=== PATIENT | female | born 1930 | race Hispanic/Latino ===

== ENCOUNTER 2018-11-23 15:10 | Emergency (ER) | payer OTHER ==
[2018-11-23 17:03] LABS: Absolute Lymphocytes (CBC) 1.4 K/uL (0.7-4.9); Basophils % 0.8 % (0-1.3); Hematocrit 41.5 % (36.0-45.0); Lymphocytes % 22.4 % (15.3-44.8); MPV 7.4 fL (7.6-11.3); RBC Red Blood Cell Count 4.61 M/uL (3.86-4.86)
[2018-11-23 17:12] LABS: Albumin 4.3 g/dL (3.4-5.0); Bilirubin Direct 0.2 mg/dL (0-0.2); Bilirubin Total 0.7 mg/dL (0.2-1.0); Potassium 3.8 mmol/L (3.5-5.1)
[2018-11-23] MEDS ORDERED: FENTANYL CITR 100 MCG/2 ML ONE (17:28)
[2018-11-23] MEDS ORDERED: ONDANSETRON 4 MG/2 ML VIAL ONE (17:28)
[2018-11-23 17:37] LABS: Urine Bacteria 20-50 /HPF (<20); Urine RBC <5 /HPF (NONE SEEN)
[2018-11-23 17:38] LABS: Urine Amorphous Sediment 1+ /HPF (NONE SEEN); Urine Culture Reflex Order REFLEXED; Urine Mucus 2+ /HPF (NONE SEEN)
[2018-11-23 17:38] LABS: Urine Blood 1+ (NEG); Urine Glucose NEGATIVE (NEG); Urine Protein NEGATIVE (NEG); Urine Specific Gravity 1.015 (1.005-1.030)
[2018-11-23 18:06] LABS: Magnesium 2.6 mg/dL (1.8-2.4); NT PRO-BNP 177 pg/mL (<450); Troponin (Emerg Dept Use Only) < 0.02 ng/mL (0.0-0.045)
[2018-11-23] MEDS ORDERED: CEFTRIAXONE/SWI 1gm 2 GM/20 ML SYR ONE (18:15)
--- NOTE | 2018-11-23 18:23 | RAD REPORT ---
EXAM DESCRIPTION: Carlos Single View11/23/2018 5:32 pm CLINICAL HISTORY: Abdominal pain COMPARISON: none FINDINGS: The lungs appear clear of acute infiltrate. The heart is mildly enlarged IMPRESSION: No acute abnormalities displayed
--- NOTE | 2018-11-23 18:44 | RAD REPORT ---
EXAM DESCRIPTION: CT - Abdomen Pelvis W Contrast - 11/23/2018 6:14 pm CLINICAL HISTORY: Abdominal pain COMPARISON: none. TECHNIQUE: Computed axial tomography of the abdomen pelvis was obtained. 100 cc Isovue-300 was admin istered intravenously. Oral contrast was not requested which limits evaluation of bowel. All CT scans are performed using dose optimization technique as appropriate and may include automated exposure control or mA/KV adjustment according to patient size. FINDINGS: The hepatic cysts. The largest measures 27 millimeters. Cholecystectomy Spleen, pancreas, adrenal and kidneys appear unremarkable. Diverticulosis without evidence of diverticulitis. Small hiatal hernia Intimal flap versus small amount of thrombus within the thoracoabdominal aorta IMPRESSION: Intimal flap versus small amount of thrombus within the thoracoabdominal aorta . Hepatic cysts
[2018-11-23] MEDS ORDERED: Nicardipine/NS 25 MG/250 ML KIT IV ONE (19:20)
--- NOTE | 2018-11-23 19:25 | EDPHYS ---
Physician Documentation [facility] Name: Esperanza Odell Age: 88 yrs Sex: Female : 1930 Arrival Date: 11/23/2018 Time: 15:15 Bed 26 Private MD: ED Physician Edy Vargas HPI: 11/23 17:35 This 88 yrs old Female presents to ER via Ambulatory with complaints of wa Abdominal Pain, Back Pain. 17:36 The patient presents with abdominal pain in the epigastric area, in the right upper wa quadrant. Onset: The symptoms/episode began/occurred today. The symptoms radiate to right back. Associated signs and symptoms: none. The symptoms are described as achy. Modifying factors: The symptoms are alleviated by nothing, the symptoms are aggravated by nothing. Severity of pain: At its worst the pain was moderate in the emergency department the pain is unchanged. The patient has experienced a previous episode, many years ago. dx'd with pancreatitis. The patient has not recently seen a physician. Historical: - Allergies: 15:20 No Known Allergies; hb - PMHx: 15:20 None; hb - PSHx: 15:20 Appendectomy; hb - Immunization history:: Adult Immunizations up to date. - Social history:: Smoking status: Patient/guardian denies using tobacco. - Ebola Screening: : No symptoms or risks identified at this time. - Family history:: not pertinent. - Hospitalizations: : No recent hospitalization is reported. ROS: 17:37 Constitutional: Negative for fever, chills, and weight loss, Eyes: Negative for injury, wa pain, redness, and discharge, ENT: Negative for injury, pain, and discharge, Neck: Negative for injury, pain, and swelling, Cardiovascular: Negative for chest pain, palpitations, and edema, Respiratory: Negative for shortness of breath, cough, wheezing, and pleuritic chest pain, Back: Negative for injury and pain, : Negative for injury, bleeding, discharge, and swelling, MS/Extremity: Negative for injury and deformity, Skin: Negative for injury, rash, and discoloration, Neuro: Negative for headache, weakness, numbness, tingling, and seizure, Psych: Negative for depression, anxiety, suicide ideation, homicidal ideation, and hallucinations. 17:37 Abdomen/GI: Positive for abdominal pain, Negative for vomiting, diarrhea. Exam: 17:38 Constitutional: This is a well developed, well nourished patient who is awake, alert, wa and in no acute distress. Head/Face: Normocephalic, atraumatic. Eyes: Pupils equal round and reactive to light, extra-ocular motions intact. Lids and lashes normal. Conjunctiva and sclera are non-icteric and not injected. Cornea within normal limits. Periorbital areas with no swelling, redness, or edema. ENT: Nares patent. No nasal discharge, no septal abnormalities noted. Tympanic membranes are normal and external auditory canals are clear. Oropharynx with no redness, swelling, or masses, exudates, or evidence of obstruction, uvula midline. Mucous membranes moist. Neck: Trachea midline, no thyromegaly or masses palpated, and no cervical lymphadenopathy. Supple, full range of motion without nuchal rigidity, or vertebral point tenderness. No Meningismus. Chest/axilla: Normal chest wall appearance and motion. Nontender with no deformity. No lesions are appreciated. Cardiovascular: Regular rate and rhythm with a normal S1 and S2. No gallops, murmurs, or rubs. Normal PMI, no JVD. No pulse deficits. Respiratory: Lungs have equal breath sounds bilaterally, clear to auscultation and percussion. No rales, rhonchi or wheezes noted. No increased work of breathing, no retractions or nasal flaring. Back: No spinal tenderness. No costovertebral tenderness. Full range of motion. Skin: Warm, dry with normal turgor. Normal color with no rashes, no lesions, and no evidence of cellulitis. MS/ Extremity: Pulses equal, no cyanosis. Neurovascular intact. Full, normal range of motion. Neuro: Awake and alert, GCS 15, oriented to person, place, time, and situation. Cranial nerves II-XII grossly intact. Motor strength 5/5 in all extremities. Sensory grossly intact. Cerebellar exam normal. Normal gait. Psych: Awake, alert, with orientation to person, place and time. Behavior, mood, and affect are within normal limits. 17:38 Abdomen/GI: Inspection: abdomen appears normal, Bowel sounds: normal, in all quadrants, Palpation: mild abdominal tenderness, in the epigastric area and right upper quadrant, voluntary guarding, is not appreciated. Vital Signs: 15:20 BP 139 / 80; Pulse 76; Resp 16; Temp 98; Pulse Ox 98% on R/A; Weight 77.11 kg; Height 5 hb ft. 1 in. (154.94 cm); Pain 8/10; 17:37 BP 117 / 73; Pulse 77; Resp 18; Pulse Ox 100% on R/A; mg2 18:51 BP 134 / 70; Pulse 78; Resp 18; Pulse Ox 100% on R/A; mg2 19:55 BP 90 / 65; Pulse 78; Resp 18; Pulse Ox 100% on R/A; mg2 20:06 BP 117 / 74; Pulse 87; Resp 18; Pulse Ox 100% on R/A; Pain 0/10; mg2 20:33 BP 129 / 76; Pulse 85; Resp 17; Pulse Ox 100% on R/A; mg2 15:20 Body Mass Index 32.12 (77.11 kg, 154.94 cm) hb MDM: 16:37 Patient medically screened. selina 17:39 Differential diagnosis: bowel obstruction, Hepatitis, Mesenteric ischemia or wa infarction, myocardia ischemia or infarction, non-specific abd pain, pancreatitis, Peptic Ulcer Disease, Perf. Duodenal Ulcer, Ureterolithiasis, urinary tract infection. Data reviewed: vital signs, nurses notes. 18:36 Test interpretation: by ED physician or midlevel provider: labs noted for UTI. EKG: selina soriano by ok. HR 74 nml sinus. nml EKG. Response to treatment: the patient's symptoms have mildly improved after treatment. 18:58 Test interpretation: by ED physician or midlevel provider: intimal flap vs small wa thrombus in thoracoabdominal aorta. ED course: noted thrombus vs flap in aorta. will transfer for further care . 19:21 Test interpretation: by ED physician or midlevel provider: . Physician consultation: selina Pruitt at [facility] CT surg. ED course: will start cardene drip for control of pressure. family advised of dx. 11/23 16:28 Order name: Basic Metabolic Panel; Complete Time: 17:19 mg2 11/23 16:28 Order name: CBC with Diff; Complete Time: 17:19 mg2 11/23 16:28 Order name: Creatinine for Radiology; Complete Time: 17:19 mg2 11/23 16:28 Order name: Hepatic Function; Complete Time: 17:19 mg2 11/23 16:28 Order name: Lipase; Complete Time: 17:20 [facility] [place] 11/23 16:53 Order name: Urine Dipstick--Ancillary (enter results); Complete Time: 18:10 11/23 17:17 Order name: Urine Microscopic Only; Complete Time: 18:10 ak 11/23 17:19 Order name: Magnesium; Complete Time: 18:10 ak 11/23 17:19 Order name: NT PRO-BNP; Complete Time: 18:10 ak 11/23 17:19 Order name: PT-INR; Complete Time: 18:10 ak 11/23 17:19 Order name: Troponin (emerg Dept Use Only); Complete Time: 18:10 ak 11/23 17:19 Order name: XRAY Chest (1 view); Complete Time: 18:35 ak 11/23 17:24 Order name: CT Abd/Pelvis - IV Contrast Only; Complete Time: 18:47 ak 11/23 17:40 Order name: Urine Culture EDME 11/23 16:28 Order name: IV Saline Lock; Complete Time: 16:41 [facility] [place] 11/23 16:28 Order name: Labs collected and sent; Complete Time: 16:41 [facility] [place] 11/23 16:41 Order name: Urine Dipstick-Ancillary (obtain specimen); Complete Time: 16:42 [facility] [place] 11/23 17:19 Order name: EKG; Complete Time: 17:21 ak 11/23 17:19 Order name: Cardiac monitoring; Complete Time: 17:27 ak 11/23 17:19 Order name: EKG - Nurse/Tech; Complete Time: 17:47 ak 11/23 17:19 Order name: O2 Per Protocol; Complete Time: 17:27 ak 11/23 17:19 Order name: O2 Sat Monitoring; Complete Time: 17:27 ak Administered Medications: 17:29 Drug: Zofran 4 mg Route: IVP; Site: right antecubital; rv 18:12 Follow up: Response: No adverse reaction; Marked relief of symptoms mg2 17:29 Drug: fentaNYL (PF) 50 mcg Route: IVP; Site: right antecubital; rv 18:12 Follow up: Response: No adverse reaction; Marked relief of symptoms mg2 18:38 Drug: Rocephin - (cefTRIAXone) 2 grams Route: IVPB; Infused Over: 30 mins; Site: right mg2 antecubital; 20:32 Follow up: IV Status: Completed infusion mg2 19:40 Drug: niCARdipine (25mg/250ml) 5 mg/hr Route: IV; Rate: calculated rate; Site: right mg2 antecubital; 20:33 Follow up: Response: No adverse reaction; IV Status: Infusion continued upon transfer; mg2 blood pressure to maintain between 110-120 mmHg SBP Disposition: 11/23/18 19:24 Transfer ordered to [facility]. Diagnosis are Aortic dissection, abdominal pain, UTI. - Reason for transfer: Higher level of care. - Accepting physician is Dr. Pruitt. - Condition is Stable. - Problem is new. - Symptoms have improved. Critical care time excluding procedures: 19:24 Critical care time: Bedside Care: 15 minutes, Consultation: 5 minutes, Family selina Intervention: 10 minutes. Total time: 30 minutes Signatures: Dispatcher [employer] EDMS Nuvia Coley RN RN Edy Vargas MD MD wa Gardose, Michele, RN RN [facility] [place] Cristino Ortiz RN RN rv Corrections: (The following items were deleted from the chart) 19:25 19:23 Critical care time: Bedside Care: 10 minutes, Consultation: 5 minutes, Family selina Intervention: 10 minutes. Total time: 25 minutes ak 20:35 19:24 11/23/2018 19:24 Transfer ordered to [facility]. Diagnosis is mg2 Aortic dissection; abdominal pain; UTI. Reason for transfer: Higher level of care. Accepting physician is Dr. Pruitt. Condition is Stable. Problem is new. Symptoms have improved. selina
--- NOTE | 2018-11-23 19:25 | ER ---
Nurse's Notes [facility] Name: Esperanza Odell Age: 88 yrs Sex: Female : 1930 Arrival Date: 11/23/2018 Time: 15:15 Bed 26 Private MD: Diagnosis: Aortic dissection;abdominal pain;UTI Presentation: 11/23 15:18 Presenting complaint: RUQ pain that radiates to mid back, chills, and nausea since last hb night. Denies V/D. Transition of care: patient was not received from another setting of care. Onset of symptoms was November 22, 2018. Risk Assessment: Do you want to hurt yourself or someone else? Patient reports no desire to harm self or others. Initial Sepsis Screen: Does the patient meet any 2 criteria? No. Patient's initial sepsis screen is negative. Does the patient have a suspected source of infection? No. Patient's initial sepsis screen is negative. Care prior to arrival: None. 15:18 Method Of Arrival: Ambulatory hb 15:18 Acuity: INNA 3 hb Historical: - Allergies: 15:20 No Known Allergies; hb - PMHx: 15:20 None; hb - PSHx: 15:20 Appendectomy; hb - Immunization history:: Adult Immunizations up to date. - Social history:: Smoking status: Patient/guardian denies using tobacco. - Ebola Screening: : No symptoms or risks identified at this time. - Family history:: not pertinent. - Hospitalizations: : No recent hospitalization is reported. Screenin:29 Abuse screen: Denies threats or abuse. Denies injuries from another. Nutritional mg2 screening: No deficits noted. Tuberculosis screening: No symptoms or risk factors identified. Fall Risk IV access (20 points). Assessment: 16:29 General: Appears in no apparent distress. comfortable, Behavior is calm, cooperative. mg2 Pain: Complains of pain in RUQ Pain radiates to back Pain currently is 4 out of 10 on a pain scale. Quality of pain is described as aching, Pain began gradually, Is intermittent. Neuro: Level of Consciousness is awake, alert, obeys commands, Oriented to person, place, time, situation. Cardiovascular: Capillary refill < 3 seconds Patient's skin is warm and dry. Respiratory: Airway is patent Respiratory effort is even, unlabored, Respiratory pattern is regular, symmetrical. GI: Bowel sounds present X 4 quads. Abd is soft and non tender X 4 quads. GI: Reports upper abdominal pain, nausea. EENT: No signs and/or symptoms were reported regarding the EENT system. Derm: Skin is intact, is healthy with good turgor, Skin is pink, warm \T\ dry. normal. Musculoskeletal: No signs and/or symptoms reported regarding the musculoskeletal system. 18:51 Reassessment: Patient states feeling better. Patient states symptoms have improved. mg2 20:07 Reassessment: report given to KEHINDE Gold [facility]. form signed by the daughter. mg2 Vital Signs: 15:20 BP 139 / 80; Pulse 76; Resp 16; Temp 98; Pulse Ox 98% on R/A; Weight 77.11 kg; Height 5 hb ft. 1 in. (154.94 cm); Pain 8/10; 17:37 BP 117 / 73; Pulse 77; Resp 18; Pulse Ox 100% on R/A; mg2 18:51 BP 134 / 70; Pulse 78; Resp 18; Pulse Ox 100% on R/A; mg2 19:55 BP 90 / 65; Pulse 78; Resp 18; Pulse Ox 100% on R/A; mg2 20:06 BP 117 / 74; Pulse 87; Resp 18; Pulse Ox 100% on R/A; Pain 0/10; mg2 20:33 BP 129 / 76; Pulse 85; Resp 17; Pulse Ox 100% on R/A; mg2 15:20 Body Mass Index 32.12 (77.11 kg, 154.94 cm) hb ED Course: 15:15 Patient arrived in ED. mr 15:19 Triage completed. hb 15:20 Arm band placed on. hb 16:25 Cristino Ortiz, KEHINDE is Primary Nurse. rv 16:31 Patient has correct armband on for positive identification. mg2 16:37 Edy Vargas MD is Attending Physician. wa 16:42 No provider procedures requiring assistance completed. Inserted saline lock: 20 gauge mg2 in right antecubital area, using aseptic technique. Blood collected. 17:34 XRAY Chest (1 view) In Process Unspecified. EDMS 18:16 CT Abd/Pelvis - IV Contrast Only In Process Unspecified. EDMS 20:34 Patient transferred, IV remains in place. mg2 Administered Medications: 17:29 Drug: Zofran 4 mg Route: IVP; Site: right antecubital; rv 18:12 Follow up: Response: No adverse reaction; Marked relief of symptoms mg2 17:29 Drug: fentaNYL (PF) 50 mcg Route: IVP; Site: right antecubital; rv 18:12 Follow up: Response: No adverse reaction; Marked relief of symptoms mg2 18:38 Drug: Rocephin - (cefTRIAXone) 2 grams Route: IVPB; Infused Over: 30 mins; Site: right mg2 antecubital; 20:32 Follow up: IV Status: Completed infusion mg2 19:40 Drug: niCARdipine (25mg/250ml) 5 mg/hr Route: IV; Rate: calculated rate; Site: right mg2 antecubital; 20:33 Follow up: Response: No adverse reaction; IV Status: Infusion continued upon transfer; mg2 blood pressure to maintain between 110-120 mmHg SBP Intake: Outcome: 19:24 ER care complete, transfer ordered by MD. marks 20:34 Transferred by ground EMS to [facility], Transfer form completed. mg2 20:34 Condition: stable 20:34 Instructed on the need for transfer, Demonstrated understanding of instructions. 20:35 Patient left the ED. mg2 Signatures: Dispatcher [employer] EDID Sidra Calixto Heather, RN RN Edy Vargas MD MD wa Gardose, Michele, RN RN mg2 Cristino Ortiz RN RN rv
--- NOTE | 2018-11-24 07:36 | EKG ---
Test Date: 2018-11-23 Test Time: 17:40:11 Hadoop Architect: CLAY MEASUREMENT RESULTS: Intervals: Rate: 74 NH: 182 QRSD: 82 QT: 406 QTc: 450 [place]: P: 57 NH: 182 QRS: 64 T: 80 INTERPRETIVE STATEMENTS: Normal sinus rhythm Normal ECG Compared to ECG 10/26/2004 05:30:00 Myocardial infarct finding no longer present Electronically Signed On 11-24-18 07:35:14 CDT by Ashish Escamilla
== END 2018-11-23 20:35 | disposition short-term general hospital (02) ==
LOC: ER 15:10
DX: I71.00 Dissection of unspecified site of aorta (principal); N39.0 Urinary tract infection, site not specified
CPT/HCPCS: 96365; 93005; 87088; 85025; 87086; 80048; 36415; 83735; 85610; 80076; 84484; 83690; 83880; 74177; 71045; 96375; 99285; Q9967; J3010; J0696; J2405; 81003; 81015

== ENCOUNTER 2020-11-17 17:00 | Inpatient (IN) | payer OTHER ==
--- OUTSIDE RECORDS SUMMARY | 2020-11-17 17:04 | XMS REPORT | Continuity of Care Document ---
:1930 Author Organization [facility] t Address [address] [place] [address] [address]. 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 - back pain back pain 00:00: [address] Allergies, Adverse Reactions, Alerts This patient has no known allergies or adverse reactions. Social History Social Habit Start Date Stop Date Quantity Comments Source Sex Assigned At [facility] Cigarettes smoked 2018-11-24 2018-11-[address] [facility] - current [facility]pack per 00:00[facility]00 [facility]00 [facility] - Reported Cigarette pack-years 2018-11-24 2018-11-[address] [facility] - 00:[facility]:00 00:00:00 [facility] Tobacco use and 2018-11-24 2018-11-[address] [facility] - exposure 00:00:00 00:00:00 [facility] Smoking Status Start Date Stop Date Source Former smoker 2018-11-24 00:00:00 2018-11-24 00:00:[address] [facility] Medications Ordered Filled Start Stop Current Ordering Indication Dosage Frequency Signature Comments Components Source Medication Medication Date Date Medication? Clinician (SIG) Name Name gabapentin Yes 100mg Q.5D Take [address] (NEURONTIN) 11-26 [facility] - 100 MG 00:00: (100 mg Medical capsule 00 total) by Center mouth 2 (two) times daily. Atorvastati Atorvastati Yes Uvaldo [address] [facility] n Calcium n Calcium [facility] Amlodipine Amlodipine Yes Uvaldo [address] Besylate Besylate [facility] Metoprolol Metoprolol Yes Uvaldo take [address] [facility] [address] Succinate Succinate Dodge tablet by [facility] - ER ER mouth Memoria every day l [facility]ics Aspir-Low Aspir-Low Yes Uvaldo [address] [facility] Immunizations Ordered Filled Immunization Date Status Comments Sourc e Immunization Name Name FluCOURTNEY FluAD 2019-02-[address] [facility] Procedures This patient has no known procedures. Plan of Care Planned Activity Planned Date Details Comments Source Future Scheduled 2019-12-21 INFLUENZA VACCINE (#1) [facility] 00:[facility]00 [code = INFLUENZA Medical Ce nter VACCINE (#1)] Future Scheduled 1999-07-[address] [facility] - Test 00:00:00 WELLNESS (YEAR 2 or Medical Center FIRST YEAR if no IPPE) [code = MEDICARE ANNUAL WELLNESS (YEAR 2 or FIRST YEAR if no IPPE)] Future Scheduled 1996 PNEUMOCOCCAL 65+ YRS [facility] - Test 00:00:00 (1 of 1 - [facility] [id number] PCV13) [code = PNEUMOCOCCAL 65+ YRS (1 of 1 - [id number] PCV13)] Encounters Start End Encounter Admission Attending Care Care Encounter Source Date/Time Date/Time Type Type Clinicians Facility Department ID 2020-10-13 2020-10-13 Outpatient [facility]ML[facility] [id number] [facility] 2020-10-09 2020-10-09 Outpatient [facility]MLC [facility] [id number] [facility] 2020-09-04 2020-09-04 Outpatient [facility]LMLC [facility] [id number] [facility] 2020-09-04 2020-09-04 Outpatient [facility]MLC [facility] [id number] [facility] 2020-03-30 2020-03-30 Outpatient STLMLC [facility] [id number] [facility] 2020-02-29 2020-02-29 Outpatient [facility]LMLC [facility] [id number] [facility] 2020-01-11 2020-01-11 Outpatient [facility]LMLC [facility] [id number] [facility] 2019-09-16 2019-09-16 [facility] [id number] 14:30:00 14:30:00 t [facility] Outpati ent Clinics 2019-05-20 2019-05-20 [facility] [id number] 13:00:00 13:00:00 t [facility] Medicine Outpati ent Clinics 2019-02-17 2019-02-17 [facility] [id number] 10:30:00 10:30:00 [facility] 2019-02-08 2019-02-08 [facility] [id number] 10:12:00 10:12:00 [facility] 2019-01-20 2019-01-20 Outpatient [facility] [id number] 13:30:00 13:30:00 [facility] Results Test Description Test Time Test Comments Results Result Comments Source POCT-GLUCOSE METER 2018-11-26 11:55:00 Test Item Value Reference Range Interpretation Comme nts POC-GLUCOSE METER (BEAKER) (test 151 mg/dL 70-[address] [facility] [address] [facility] code = 1538) [facility] 7703 0 POCT-GLUCOSE [id number] 08:20:00 Test Item Value Reference Range Interpretation Comments POC-GLUCOSE METER 91 mg/dL 70-[address] [facility] 67[address] (BEAKER) (test code = MARIN Huff [facility] [id number]) [id number] 06:54:00 Test Item Value Reference Range Interpretation Comments MAGNESIUM (BEAKER) 2.1 mg/dL 1.6-2.6 Specimen slightly (test code = 627) hemolyzed [id number] 06:54:00 Test Item Value Reference Range Interpretation Comments PHOSPHORUS (BEAKER) 2.3 mg/dL 2.3-4.7 Specimen slightly (test code = 604) hemolyzed BASIC METABOLIC [id number] 06:54:00 Test Item Value Reference Range Interpretation Comments SODIUM (BEAKER) 135 meq/L 136-145 L (test code = 381) POTASSIUM (BEAKER) 3.7 meq/L 3.5-5.1 Specimen slightly (test code = 379) hemolyzed CHLORIDE (BEAKER) 103 meq/L 98-107 (test code = 382) CO2 (BEAKER) (test 25 meq/L 22-29 code = 355) BLOOD UREA NITROGEN 14 mg/dL 7-21 (BEAKER) (test code = 354) CREATININE (BEAKER) 0.76 mg/dL 0.57-1.25 Specimen slightly (test code = 358) hemolyzed GLUCOSE RANDOM 96 mg/dL 70-105 (BEAKER) (test code = 652) CALCIUM (BEAKER) 9.3 mg/dL 8.4-10.2 (test code = 697) EGFR (BEAKER) (test 72 mL/min/1.73 ESTIMA BELINDA GFR IS code = 1092) sq m NOT ACCURATE CREATININE CLEARANCE IN PREDICTING GLOMERULAR FILTRATION RATE . ESTIMATED GFR I S NOT APPLICABLE FOR DIALYSIS PATIEN TS. CBC (HEMOGRAM ONLY)2018-11-26 06:19:00 Test Item Value Reference Range Interpretation Comments WHITE BLOOD CELL COUNT (BEAKER) 6.8 K/ L 3.5-10.5 (test code = 775) RED BLOOD CELL COUNT (BEAKER) 4.07 M/ L 3.93-5.22 (test code = 761) HEMOGLOBIN (BEAKER) (test code = 12.3 GM/DL 11.2-15.7 410) HEMATOCRIT (BEAKER) (test code = 36.7 % 34.1-44.9 411) MEAN CORPUSCULAR VOLUME (BEAKER) 90.2 fL 79.4-94.8 (test code = 753) MEAN CORPUSCULAR HEMOGLOBIN 30.2 pg 25.6-32.2 (BEAKER) (test code = 751) MEAN CORPUSCULAR HEMOGLOBIN CONC 33.5 GM/DL 32.2-35.5 (BEAKER) (test code = 752) RED CELL DISTRIBUTION WIDTH 12.6 % 11.7-14.4 (BEAKER) (test code = 412) PLATELET COUNT (BEAKER) (test 201 K/CU MM 150-450 code = 756) MEAN PLATELET VOLUME (BEAKER) 8.9 fL 9.4-12.3 L (test code = 754) NUCLEATED RED BLOOD CELLS 0 /100 WBC 0-0 (BEAKER) (test code = 413) [id number] 04:05:00 Test Item Value Reference Range Interpretation Comments PHOSPHORUS (BEAKER) (test code = 2.2 mg/dL 2.3-4.7 L 604) [id number] 04:05:00 Test Item Value Reference Range Interpretation Comments MAGNESIUM (BEAKER) (test code = 2.1 mg/dL 1.6-2.6 627) BASIC METABOLIC [id number] 04:05:00 Test Item Value Reference Range Interpretation Comments SODIUM (BEAKER) 135 meq/L 136-145 L (test code = 381) POTASSIUM (BEAKER) 3.6 meq/L 3.5-5.1 (test code = 379) CHLORIDE (BEAKER) 106 meq/L 98-107 (test code = 382) CO2 (BEAKER) (test 24 meq/L 22-29 code = 355) BLOOD UREA NITROGEN 12 mg/dL 7-21 (BEAKER) (test code = 354) CREATININE (BEAKER) 0.72 mg/dL 0.57-1.25 (test code = 358) GLUCOSE RANDOM 90 mg/dL 70-105 (BEAKER) (test code = 652) CALCIUM (BEAKER) 9.1 mg/dL 8.4-10.2 (test code = 697) EGFR (BEAKER) (test 77 mL/min/1.73 ESTIMA BELINDA GFR IS code = 1092) sq m NOT ACCURATE CREATININE CLEARANCE IN PREDICTING GLOMERULAR FILTRATION RATE . ESTIMATED GFR I S NOT APPLICABLE FOR DIALYSIS PATINELIDA TS. LIPID [id number] 04:05:00 Test Item Value Reference Range Interpretation Comments TRIGLYCERIDES (BEAKER) (test code = 91 mg/dL 540) CHOLESTEROL (BEAKER) (test code = 192 mg/dL 631) HDL CHOLESTEROL (BEAKER) (test code 38 mg/dL = 976) LDL CHOLESTEROL CALCULATED (BEAKER) 136 mg/dL (test code = 633) Triglyceride Reference Range: Low Risk <150 Borderline 150-199 High Risk 200-499 Very High Risk >=500Cholesterol Reference Range: Low Risk <200 Borderline 200-239 High Risk >240HDL Cholesterol Reference Range: Low Risk >=60 High Risk <40LDL Cholesterol Reference Range: Optimal <100 Near Optimal 100-129 Borderline 130-159 High 160-189 Very High >=190CBC (HEMOGRAM ONLY)2018-11-25 03:31:00 Test Item Value Reference Range Interpretation Comments WHITE BLOOD CELL COUNT (BEAKER) 5.1 K/ L 3.5-10.5 (test code = 775) RED BLOOD CELL COUNT (BEAKER) 4.08 M/ L 3.93-5.22 (test code = 761) HEMOGLOBIN (BEAKER) (test code = 12.1 GM/DL 11.2-15.7 410) HEMATOCRIT (BEAKER) (test code = 37.7 % 34.1-44.9 411) MEAN CORPUSCULAR VOLUME (BEAKER) 92.4 fL 79.4-94.8 (test code = 753) MEAN CORPUSCULAR HEMOGLOBIN 29.7 pg 25.6-32.2 (BEAKER) (test code = 751) MEAN CORPUSCULAR HEMOGLOBIN CONC 32.1 GM/DL 32.2-35.5 L (BEAKER) (test code = 752) RED CELL DISTRIBUTION WIDTH 12.6 % 11.7-14.4 (BEAKER) (test code = 412) PLATELET COUNT (BEAKER) (test 204 K/CU MM 150-450 code = 756) MEAN PLATELET VOLUME (BEAKER) 9.0 fL 9.4-12.3 L (test code = 754) NUCLEATED RED BLOOD CELLS 0 /100 WBC 0-0 (BEAKER) (test code = 413) CTA, CHEST, ABDOMEN - PELVIS, FOR [id number] 18:29:00Reason for exam:- >aortic dissectionAddendum BeginsREPORT STATUS:A Addendum: I agree with the previously described non vascular findings. In the right apex there is a 9 mm x 9 mm nodularity that may be apical pleural parenchymal scarring versus a true pulmonary nodule. Consider CT at three months, PET/CT, or tissue sampling. Signed: Dennis English MDReport Verified Date/Time: 11/24/2018 18:29:44 Reading Location: [place] [address] Angio Body Reading RoomAddendum EndsFINAL REPORT CT angiographyof the thoracoabdominal aorta and pelvic arteries, 24 November 2018 INDICATION: This is a 88 year oldfemale with a diagnosis of aortic dissection presents for assessment. This study is performed in an attempt to avoid an invasive procedure. TECHNIQUE: Spiral acquisition before and during intravenous contrast administration using a Georgie multidetector CT scanner. Images were obtained before and during the dynamic passage of intravenous contrast material. Multi- planar 3-D volume-rendering reconstruction was performed using an independent workstation interactively by the interpreting physician as well as the 3-D specialist for optimal visualisation of the thoracoabdominal aorta, the pelvic arteries as well as its proximal branches. Please refer to the contrast sheet scanned in the EPIC system forthe amount and route of contrast given. This exam was performed according to our departmental dose-optimisation programme, which includes automated exposure control, adjustment of the mA and/or kV according to patient size and/or use of iterative reconstruction technique. Dose modulation, iterative reconstruction, and/or weight based adjustment of the mA/kV was utilized to reduce the radiation dose to as low as reasonably achievable. FINDINGS: VASCULAR: The central pulmonary artery is normal in calibre. The cardiac chambers demonstrate normal atrioventricular and ventriculoarterial concordance, and systemic and pulmonary venous return. The left ventricle is normal in size. Mild left atrial prominence is identified. Coronary artery origins are normal. Scattered calcification is seen in the left main coronary artery, proximal LAD. The aortic root is unremarkable. The mid ascending thoracic aorta is also normal in calibre, however, noncalcific atheroma is identified, in the right lateral aspect, and the thickness of the atheroma is up to 3 mm. The transverse arch and descending thoracic aorta also had predominantly noncalcific atherosclerosis with scattered calcification identified. In addition, in the undersurface of the proximal descending thoracic aorta, atherosclerotic ulceration is identified, at image 60. See snapshot for details. In addition, protruding atheroma is seen, measures up to 9 to 10 mm in thickness. Again see snapshot for details. Protruding atheroma is also identified near the diaphragmatic hiatus, in the left medial aspect, at image 159, and the thickness of the atheroma is approximately 8 mm in thickness. The abdominal aorta is unremarkable, with mild calcific and noncalcific atherosclerosis identified. No aneurysmal dilation is seen. There is no evidence of acute aortic pathology, specifically, there is no dissection, intramural hematoma, or contained rupture. The arch vessel branching pattern is normal and the visualized arch vessels are widely patent proximally. Finally, localised atherosclerotic ulceration is identified in the takeoff of the left subclavian artery, anteriorly, at image 42, with no stenosis is identified. Quantitative dimensions of the aortaare as follows: 3.0 cm at the sinuses of Valsalva (the sino-tubular junction is preserved); 3.0 cm at the proximal ascending thoracic aorta; 3.0 cm at the mid ascending aorta; 3.0 cm at the distal ascending aorta; 2.7 cm at the mid transverse arch; 3.6 x 3.1 cm at the proximal descending aorta; 2.5 x 2.4 cm at the mid descending aorta; 2.4 x 2.3 cm at the diaphragmatic hiatus. In the abdomen, the aorta measures 2.3 cm at the mesenteric segment; 1.9 cm at the renal segment,; and 1.7 cm at the aortic bifurcation. The common iliac, external iliac, common femoral, and the visualized superficial femoral arteries, bilaterally, are widely patent with no obstructive lesion identified. Only minimal nonobstructive calcification is present, for example at the common iliac level. Agricultural Engineer dimension of the left and the right external iliac artery is approximately 5 to 6 mm, bilaterally. There are 2 left and single right renal arteries that are widely patent. The accessory left renal artery is tiny in calibre. Minimal nonobstructive calcification is seen at the takeoff of the main left renal art nicolás. The coeliac axis, SMA, EDWAR are widely patent. NON-VASCULAR:- The visualised thyroid gland appears unremarkable. The chest wall and mediastinum appear normal. No significant adenopathy is identified in the mediastinum. In the lung windows, no endobronchial lesion is seen, and no pleural effusion is identified. Some segmental atelectatic changes are seen. At image 12 of the right upper lobe, apical scarring is identified. See snapshot for details. No pulmonary nodule is identified. In the abdomen, the liver and spleen appears unremarkable. The liver edge is smooth. A left liver cyst is identified, at image 171, measure 2.6 cm in diameter. A smaller cyst measuring 8 mm identified more laterally. No abnormal enhancing structure is identified. The adrenal glands are not enlarged. Patient is post cholecystectomy. The pancreas appears unremarkable. No acute renal pathology is seen and no hydronephrosis or perirenal fluid collection is noted. Subcentimeter hypodensities are seen in the kidneys, most of them are too small to characterise, likely represent tiny renal cysts. Contrast is seen in both renal pelvis in the precontrast series is indicating prior contrast exposure. Bowel is not well assessed by CT angiography as enteric contrast is not given. No obvious bowel dilation is identified.A small hiatus hernia is noted diverticular disease is seen in the distal colon with no inflammatorychanges present. The bladder is full of contrast. The uterus is present. No obvious abnormal adnexalmass is seen and CT is not optimised in assessment of pelvic gynecological structure is. No significant retroperitoneal adenopathy is identified. No free air free fluid seen abdomen and pelvis. In the bony windows, no acute bony pathology is seen. Some degenerative changes is noted. CONCLUSIONS: 1. There is no aortic dissection. 2. No obvious vascular aetiology that would explain patient's abdominal pain despite the presence of protruding atheroma. No abrupt cutoff sign is identified in the mesenteric arteries and the major mesenteric arteries are seen to be widely patent proximally. The visualised bowel structure is grossly unremarkable and no pneumatosis is identified. 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 Widely patent mesenteric and renal arteries. 3. The thoracic aorta is normal in course and calibre. No acute aortic pathology is identified. In the mid ascending thoracic aorta, the diaphragmatic hiatus, protruding noncalcific atheroma is identified. In addition, in the undersurface of the proximal descending thoracic aorta, at image 58, protruding atheroma is identified, with associated atherosclerotic ulceration, representing a spectrum of underlying atherosclerosis. See snapshot for details. Quantitative dimension of the thoracoabdominal aorta are as described above. 4. Normal coronary artery origins. Scattered Calcifications identified in the left coronary territory. 5. No acute pulmonary pathology is identified. 6. Other findings as described above. 7. An addendum will be dictated regarding the non-vascular findings by the Pest Control Specialist Radiologist. Signed: Luke Bella Verified Date/Time: 11/24/2018 07:58:35 Reading Location: [place] [address] Cardiology MRI B-TYPE NATRIURETIC FACTOR (BNP)2018-11-24 12:59:00 Test Item Value Reference Range Interpretation Comments B-TYPE NATRIURETIC PEPTIDE (BEAKER) 71 pg/mL 0-100 (test code = 700) TROPONIN [id number] 11:46:00 Test Item Value Reference Range Interpretation Comments TROPONIN I (BEAKER) (test code = 397) < ng/mL 0.00-0.03 Troponin I (TnI) levels must be interpreted in the context of the presenting symptoms and the clinical findings. Elevated TnI levels indicate myocardial damage, but are not specific for ischemic heart disease. Elevated TnI levels are seen in patients with other cardiac conditions (including myocarditis and congestive heart failure), and slight TnI elevations occur in patients with other conditions, including sepsis, renal failure, acidosis, acute neurological disease, and persistent tachyarrhythmia.URINALYSIS W/ [id number] 08:49:00 Test Item Value Reference Range Interpretation Comments COLOR (BEAKER) (test code = 470) Light Yellow CLARITY (BEAKER) (test code = Clear 469) SPECIFIC GRAVITY UA (BEAKER) 1.030 1.001-1.035 (test code = 468) PH UA (BEAKER) (test code = 467) 7.5 5.0-8.0 PROTEIN UA (BEAKER) (test code = Negative Negative 464) GLUCOSE UA (BEAKER) (test code = Negative Negative 365) KETONES UA (BEAKER) (test code = 20 mg/dL Negative A 371) BILIRUBIN UA (BEAKER) (test code Negative Negative = 462) BLOOD UA (BEAKER) (test code = Trace Negative A 461) NITRITE UA (BEAKER) (test code = Negative Negative 465) LEUKOCYTE ESTERASE UA (BEAKER) Small Negative A (test code = 466) UROBILINOGEN UA (BEAKER) (test 0.2 mg/dL 0.2-1.0 code = 463) RBC UA (BEAKER) (test code = 3 /HPF 519) WBC UA (BEAKER) (test code = 6 /HPF 520) BACTERIA (BEAKER) (test code = Occasional 517) SQUAMOUS EPITHELIAL (BEAKER) 2 /HPF (test code = 516) SOURCE(BEAKER) (test code = 2795) [id number] 06:41:00 Test Item Value Reference Range Interpretation Comments MAGNESIUM (BEAKER) 2.4 mg/dL 1.6-2.6 Specimen slightly (test code = 627) hemolyzed [id number] 06:41:00 Test Item Value Reference Range Interpretation Comments PHOSPHORUS (BEAKER) 3.1 mg/dL 2.3-4.7 Specimen slightly (test code = 604) hemolyzed BASIC METABOLIC [id number] 06:41:00 Test Item Value Reference Range Interpretation Comments SODIUM (BEAKER) 135 meq/L 136-145 L (test code = 381) POTASSIUM (BEAKER) 4.0 meq/L 3.5-5.1 Specimen slightly (test code = 379) hemolyzed CHLORIDE (BEAKER) 103 meq/L 98-107 (test code = 382) CO2 (BEAKER) (test 22 meq/L 22-29 code = 355) BLOOD UREA NITROGEN 14 mg/dL 7-21 (BEAKER) (test code = 354) CREATININE (BEAKER) 0.77 mg/dL 0.57-1.25 Specimen slightly (test code = 358) hemolyzed GLUCOSE RANDOM 92 mg/dL 70-105 (BEAKER) (test code = 652) CALCIUM (BEAKER) 9.7 mg/dL 8.4-10.2 (test code = 697) EGFR (BEAKER) (test 71 mL/min/1.73 ESTIMA BELINDA GFR IS code = 1092) sq m NOT ACCURATE CREATININE CLEARANCE IN PREDICTING GLOMERULAR FILTRATION RATE . ESTIMATED GFR I S NOT APPLICABLE FOR DIALYSIS PATIEN TS. RAD, CHEST, 2 [id number] 04:08:00Reason for exam:->Pre-opShould this be performed at the bedside?->YesFINAL REPORT TECHNIQUE: RAD, CHEST, 2 VIEWS COMPARISON: None available Additional clinical history: Preoperative examination IMPRESSION: The cardiomediastinal silhouette is within normal limits. Ectasia atherosclerotic aortic knob measuring up to 4.0 cm could be further evaluated on CTA chest.. The lungs are hyperexpanded. Eventration of the bilateral hemidiaphragms. No pleural effusion. No lobar consolidation. No pneumothorax. Osseous structures are grossly unremarkable. Signed: Jojo Muniz [facility] Verified Date/Time: 11/24/2018 04:08:38 Electronically signedby: JOJO MUNIZ MD on 11/24/2018 04:08 [facility] [address] (HEMOGRAM ONLY) 2018-11-24 04:03:00 Test Item Value Reference Range Interpretation Comments WHITE BLOOD CELL COUNT (BEAKER) 6.0 K/ L 3.5-10.5 (test code = 775) RED BLOOD CELL COUNT (BEAKER) 4.22 M/ L 3.93-5.22 (test code = 761) HEMOGLOBIN (BEAKER) (test code = 12.9 GM/DL 11.2-15.7 410) HEMATOCRIT (BEAKER) (test code = 38.3 % 34.1-44.9 411) MEAN CORPUSCULAR VOLUME (BEAKER) 90.8 fL 79.4-94.8 (test code = 753) MEAN CORPUSCULAR HEMOGLOBIN 30.6 pg 25.6-32.2 (BEAKER) (test code = 751) MEAN CORPUSCULAR HEMOGLOBIN CONC 33.7 GM/DL 32.2-35.5 (BEAKER) (test code = 752) RED CELL DISTRIBUTION WIDTH 12.7 % 11.7-14.4 (BEAKER) (test code = 412) PLATELET COUNT (BEAKER) (test 227 K/CU MM 150-450 code = 756) MEAN PLATELET VOLUME (BEAKER) 9.3 fL 9.4-12.3 L (test code = 754) NUCLEATED RED BLOOD CELLS 0 /100 WBC 0-0 (BEAKER) (test code = 413) HEPATITIS B [id number] 00:31:00 Test Item Value Reference Range Interpretation Comments HEPATITIS B CORE TOTAL ANTIBODY Nonreactive Nonreactive (BEAKER) (test code = 497) HEPATITIS B SURFACE ANTIBODY < mIU/mL <8.0 (BEAKER) (test code = 647) HEPATITIS B SURFACE ANTIGEN (2) Nonreactive Nonreactive (BEAKER) (test code = 2585) HEPATITIS C [id number] 00:23:00 Test Item Value Reference Range Interpretation Comments HEPATITIS C ANTIBODY (BEAKER) Nonreactive Nonreactive (test code = 367) HIV-1 ANTIGEN WITH HIV-1/2 [id number] 00:23:00 Test Item Value Reference Range Interpretation Comments HIV-1 ANTIGEN WITH HIV 1\T\2 Nonreactive Nonreactive ANTIBODY (2) (BEAKER) (test code = 2586) LACTATE DEHYDROGENASE (LDH)2018-11-24 00:03:00 Test Item Value Reference Range Interpretation Comments LACTATE DEHYDROGENASE 244 U/L 125-220 H Specim en slightly (BEAKER) (test code = hemoly zed 635) [id number] 00:02:00 Test Item Value Reference Range Interpretation Comments LIPASE (BEAKER) (test code = 749) 89 U/L 8-78 H [id number] 00:02:00 Test Item Value Reference Range Interpretation Comments AMYLASE (BEAKER) (test 76 U/L 25-125 Speci men slightly code = 349) hemolyzed BASIC METABOLIC [id number] 00:02:00 Test Item Value Reference Range Interpretation Comments SODIUM (BEAKER) 136 meq/L 136-145 (test code = 381) POTASSIUM (BEAKER) 4.1 meq/L 3.5-5.1 Specimen slightly (test code = 379) hemolyzed CHLORIDE (BEAKER) 101 meq/L 98-107 (test code = 382) CO2 (BEAKER) (test 23 meq/L 22-29 code = 355) BLOOD UREA NITROGEN 13 mg/dL 7-21 (BEAKER) (test code = 354) CREATININE (BEAKER) 0.80 mg/dL 0.57-1.25 Specimen slightly (test code = 358) hemolyzed GLUCOSE RANDOM 95 mg/dL 70-105 (BEAKER) (test code = 652) CALCIUM (BEAKER) 10.2 mg/dL 8.4-10.2 (test code = 697) EGFR (BEAKER) (test 68 mL/min/1.73 ESTIMA BELINDA GFR IS code = 1092) sq m NOT ACCURATE CREATININE CLEARANCE IN PREDICTING GLOMERULAR FILTRATION RATE . ESTIMATED GFR I S NOT APPLICABLE FOR DIALYSIS PATIEN TS. HEPATIC FUNCTION [id number] 00:02:00 Test Item Value Reference Range Interpretation Comments TOTAL PROTEIN (BEAKER) 8.1 gm/dL 6.0-8.3 Speci men slightly (test code = 770) hemolyzed ALBUMIN (BEAKER) (test 4.3 g/dL 3.5-5.0 Speci men slightly code = 1145) hemolyzed BILIRUBIN TOTAL 0.5 mg/dL 0.2-1.2 Specimen sli ghtly (BEAKER) (test code = hemoly zed 377) BILIRUBIN DIRECT 0.2 mg/dL 0.1-0.5 Specimen sl ightly (BEAKER) (test code = hemoly zed 706) ALKALINE PHOSPHATASE 94 U/L 40-150 (BEAKER) (test code = 346) AST (SGOT) (BEAKER) 17 U/L 5-34 Specimen slightly (test code = 353) hemolyzed ALT (SGPT) (BEAKER) 11 U/L 6-55 Specimen slightly (test code = 347) hemolyzed [id number] 23:57:00 Test Item Value Reference Range Interpretation Comments PARTIAL THROMBOPLASTIN TIME 27.5 seconds 22.5-36.0 (BEAKER) (test code = 760) PROTHROMBIN TIME/[id number] 23:56:00 Test Item Value Reference Range Interpretation Comments PROTIME (BEAKER) (test code = 13.2 seconds 11.9-14.2 759) INR (BEAKER) (test code = 370) 1.1 <=5.9 Effective 09/16/2018: PT Reference Range ChangeNew: 11.9-14.2 Previous: 11.7- 14.7RECOMMENDED COUMADIN/WARFARIN INR THERAPY RANGESSTANDARD DOSE: 2.0-3.0 Includes: PROPHYLAXIS for venous thrombosis, systemic embolization; TREATMENT for venous thrombosis and/or pulmonary embolus.HIGH RISK: Target INR is2.5-3.5 for patients wiht mechanical heart valves.CBC W/PLT COUNT & AUTO [id number] 23:41:00 Test Item Value Reference Range Interpretation Comments WHITE BLOOD CELL COUNT (BEAKER) 6.6 K/ L 3.5-10.5 (test code = 775) RED BLOOD CELL COUNT (BEAKER) 4.71 M/ L 3.93-5.22 (test code = 761) HEMOGLOBIN (BEAKER) (test code = 14.3 GM/DL 11.2-15.7 410) HEMATOCRIT (BEAKER) (test code = 42.6 % 34.1-44.9 411) MEAN CORPUSCULAR VOLUME (BEAKER) 90.4 fL 79.4-94.8 (test code = 753) MEAN CORPUSCULAR HEMOGLOBIN 30.4 pg 25.6-32.2 (BEAKER) (test code = 751) MEAN CORPUSCULAR HEMOGLOBIN CONC 33.6 GM/DL 32.2-35.5 (BEAKER) (test code = 752) RED CELL DISTRIBUTION WIDTH 12.5 % 11.7-14.4 (BEAKER) (test code = 412) PLATELET COUNT (BEAKER) (test 257 K/CU MM 150-450 code = 756) MEAN PLATELET VOLUME (BEAKER) 8.9 fL 9.4-12.3 L (test code = 754) NUCLEATED RED BLOOD CELLS 0 /100 WBC 0-0 (BEAKER) (test code = 413) NEUTROPHILS RELATIVE PERCENT 67 % (BEAKER) (test code = 429) LYMPHOCYTES RELATIVE PERCENT 24 % (BEAKER) (test code = 430) MONOCYTES RELATIVE PERCENT 6 % (BEAKER) (test code = 431) EOSINOPHILS RELATIVE PERCENT 1 % (BEAKER) (test code = 432) BASOPHILS RELATIVE PERCENT 1 % (BEAKER) (test code = 437) NEUTROPHILS ABSOLUTE COUNT 4.40 K/ L 1.56-6.13 (BEAKER) (test code = 670) LYMPHOCYTES ABSOLUTE COUNT 1.59 K/ L 1.18-3.74 (BEAKER) (test code = 414) MONOCYTES ABSOLUTE COUNT (BEAKER) 0.42 K/ L 0.24-0.36 H (test code = 415) EOSINOPHILS ABSOLUTE COUNT 0.09 K/ L 0.04-0.36 (BEAKER) (test code = 416) BASOPHILS ABSOLUTE COUNT (BEAKER) 0.07 K/ L 0.01-0.08 (test code = 417) IMMATURE GRANULOCYTES-RELATIVE 1 % 0-1 PERCENT (BEAKER) (test code = 3473)
--- NOTE | 2020-11-17 20:21 | RAD REPORT ---
EXAM DESCRIPTION: CT - C Spine Wo Con - 11/17/2020 8:09 pm CLINICAL HISTORY: Neck pain, left upper extremity radiculopathy COMPARISON: None. TECHNIQUE: Axial 2 mm thick images of the cervical spine were obtained with sagittal and coronal rec onstruction images generated and reviewed. All CT scans are performed using dose optimization technique as appropriate and may include automated exposure control or mA/KV adjustment according to patient size. FINDINGS: Wedge compression of the C5 body is noted with approximately 30% of overall height loss. T his results in reversal of the usual cervical lordosis. The kyphosis along with endplate spurring cau ses spinal stenosis to 9 mm at C5-6. C5-6 and C6-7 disc space narrowing. No acute fracture line seen. This is chronic abnormality. No othe r significant disc space narrowing. There is slight retrolisthesis of C5 and C6 relative to C4 and C7 . No acute fracture or acute bone abnormality identified. Prominent facet joint degenerative changes are present. Mild bony foraminal encroachment results on t he left at C3-4 and C4-5. Mild to moderate bilateral C5-6 and C6-7 bony foraminal encroachment. No paraspinal mass or hematoma. Central canal detail is inherently limited on CT imaging. 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 Multilevel foraminal stenosis spanning C3-4 through C6-7. No acute fracture or acute cervical spine finding. Central canal detail is inherently limited.
[2020-11-17 21:15] LABS: Absolute Lymphocytes (CBC) 2.1 K/uL (0.7-4.9); Basophils % 1.2 % (0-1.3); Hematocrit 39.6 % (36.0-45.0); Lymphocytes % 27.8 % (15.3-44.8); MPV 6.9 fL (7.6-11.3); RBC Red Blood Cell Count 4.38 M/uL (3.86-4.86)
[2020-11-17 21:24] LABS: Protime INR 0.97
[2020-11-17 21:34] LABS: ALT/SGPT 19 U/L (12-78); AST/SGOT 18 U/L (15-37); Alkaline Phosphatase 99 U/L (45-117); BUN Blood Urea Nitrogen 19 mg/dL (7-18); Bicarbonate 26 mmol/L (21-32); Bilirubin Direct 0.1 mg/dL (0-0.2); Bilirubin Total 0.5 mg/dL (0.2-1.0); Glucose Level 84 mg/dL (74-106); Magnesium 2.6 mg/dL (1.8-2.4); NT PRO-BNP 408 pg/mL (<450); Potassium 4.3 mmol/L (3.5-5.1); Sodium Level 138 mmol/L (136-145); Troponin (Emerg Dept Use Only) < 0.02 ng/mL (0.0-0.045)
--- NOTE | 2020-11-17 21:52 | RAD REPORT ---
EXAM DESCRIPTION: RAD - Chest Single View - 11/17/2020 8:57 pm CLINICAL HISTORY: CHEST PAIN COMPARISON: Portable November 2018 TECHNIQUE: AP portable chest image was obtained 11/17/2020 8:57 pm . FINDINGS: Lungs are clear. Heart and vasculature are normal. No measurable pleural effusion and no p neumothorax. No acute bony abnormality seen. No acute aortic findings suspected. IMPRESSION: No acute cardiopulmonary process. No significant change from comparison study.
--- NOTE | 2020-11-17 21:54 | ER ---
Nurse's Notes [facility] Name: Esperanza Odell Age: 89 yrs Sex: Female : 1930 Arrival Date: 11/17/2020 Time: 17:09 Bed 8 Private MD: Diagnosis: Chest pain. Advanced cervical spines degenerative changes Presentation: 11/17 17:18 Chief complaint: Patient's son or daughter states: she has had pain in neck and left tw2 arm for a week but the passed 2 days it has been too much pain. Coronavirus screen: At this time, the client does not indicate any symptoms associated with coronavirus-19. Ebola Screen: Patient denies travel to an Ebola-affected area in the 21 days before illness onset. 17:18 Method Of Arrival: Ambulatory tw2 17:22 Initial Sepsis Screen: Does the patient meet any 2 criteria? No. Patient's initial tw2 sepsis screen is negative. Does the patient have a suspected source of infection? No. Patient's initial sepsis screen is negative. Risk Assessment: Do you want to hurt yourself or someone else? Patient reports no desire to harm self or others. Onset of symptoms was November 17, 2020. 17:22 Acuity: INNA 3 tw2 Triage Assessment: 17:22 General: Appears in no apparent distress. well groomed, Behavior is calm, cooperative, tw2 appropriate for age. Pain: Complains of pain in neck and left arm. Historical: - Allergies: 17:19 No Known Allergies; tw2 - Home Meds: 17:19 gabapentin 300 mg oral cap 1 cap 3 times per day [Active]; metoprolol succinate 50 mg tw2 oral Tb24 1 tab once daily [Active]; atorvastatin 10 mg oral tab 1 tab once daily [Active]; - PMHx: 17:19 hypertension; tw2 - PSHx: 17:19 Cholecystectomy; Appendectomy; tw2 - Immunization history:: Adult Immunizations Client reports receiving the 2nd dose of the Covid vaccine. - Social history:: Smoking status: . Screenin:23 Abuse screen: Denies threats or abuse. Nutritional screening: No deficits noted. tw2 Tuberculosis screening: No symptoms or risk factors identified. Fall Risk Secondary diagnosis (15 points) impaired mobility. Assessment: 20:30 General: Appears in no apparent distress. Behavior is calm, cooperative, appropriate ea for age. Pain: Complains of pain in neck. Neuro: Level of Consciousness is awake, alert, obeys commands, Oriented to person, place, time. Cardiovascular: Patient's skin is warm and dry. Respiratory: Airway is patent Respiratory effort is even, unlabored, Respiratory pattern is regular, symmetrical. Derm: Skin is pink, warm \\T\\ dry. Vital Signs: 17:22 BP 145 / 74; Pulse 71; Resp 18; Temp 97.9(TE); Pulse Ox 98% on R/A; tw2 ED Course: 17:09 Patient arrived in ED. ds1 17:22 Triage completed. tw2 17:22 Arm band placed on. tw2 19:30 Nickolas Rosado MD is Attending Physician. pkl 20:09 CT C Spine In Process Unspecified. EDMS 20:14 Michelle Keyes, RN is Primary Nurse. ea 20:58 XRAY Chest (1 view) In Process Unspecified. EDMS 21:52 Giovanni Lynch MD is Hospitalizing Provider. pkl 23:00 Inserted saline lock: 20 gauge in right antecubital area, using aseptic technique. ea 11/18 00:05 No provider procedures requiring assistance completed. Patient admitted, IV remains in ea place. 07:55 COVID-19 : Document "Date of Symptom Onset" if Symptomatic. Sent. Administered Medications: No medications were administered Outcome: 11/17 21:53 Decision to Hospitalize by Provider. pkl 11/18 00:06 Admitted to ER Hold. Please see [facility] for further documentation. ea Condition: stable Instructed on the need for admit, Demonstrated understanding of instructions. 14:25 Patient left the ED. jd3 Signatures: Dispatcher [employer] EDAL Evelyn Aguilar, Nickolas Jay RN, MD MD pkRosamaria Sanabria ds1 Marisa Mcconnell RN RN tw2 Michelle Keyes RN RN ea Davies, Jonathon, RN RN jd3
--- NOTE | 2020-11-17 21:54 | EDPHYS ---
Physician Documentation [facility] Name: Esperanza Odell Age: 89 yrs Sex: Female : 1930 Arrival Date: 11/17/2020 Time: 17:09 Bed 8 Private MD: ED Physician Nickolas Rosado HPI: 11/17 19:46 This 89 yrs old Female presents to ER via Ambulatory with complaints of Neck pkl Pain, >24Hrs Old, Arm Pain. 19:46 The patient or guardian complains of pain, that is acute. The symptoms are located at pkl the back of neck. Onset: The symptoms/episode began/occurred 2 month(s) ago, and became worse 3 day(s) ago. Associated signs and symptoms: Pertinent negatives: chills, fever. Historical: - Allergies: 17:19 No Known Allergies; tw2 - Home Meds: 17:19 gabapentin 300 mg oral cap 1 cap 3 times per day [Active]; metoprolol succinate 50 mg tw2 oral Tb24 1 tab once daily [Active]; atorvastatin 10 mg oral tab 1 tab once daily [Active]; - PMHx: 17:19 hypertension; tw2 - PSHx: 17:19 Cholecystectomy; Appendectomy; tw2 - Immunization history:: Adult Immunizations Client reports receiving the 2nd dose of the Covid vaccine. - Social history:: Smoking status: . ROS: 19:46 Eyes: Negative for injury, pain, redness, and discharge, ENT: Negative for injury, pkl pain, and discharge. 19:46 Neck: Positive for pain with movement. 19:46 Cardiovascular: Negative for chest pain. 19:46 Respiratory: Negative for cough, shortness of breath. 19:46 Abdomen/GI: Negative for abdominal pain, nausea, vomiting, and diarrhea. 19:46 Back: Negative for acute changes. 19:46 : Negative for urinary symptoms. 19:46 MS/extremity: Negative for acute changes. 19:46 Skin: Negative for rash. 19:46 Neuro: Negative for altered mental status, loss of consciousness. Exam: 19:46 Head/Face: Normocephalic, atraumatic. Eyes: Pupils equal round and reactive to light, pkl extra-ocular motions intact. Lids and lashes normal. Conjunctiva and sclera are non-icteric and not injected. Cornea within normal limits. Periorbital areas with no swelling, redness, or edema. ENT: Nares patent. No nasal discharge, no septal abnormalities noted. Tympanic membranes are normal and external auditory canals are clear. Oropharynx with no redness, swelling, or masses, exudates, or evidence of obstruction, uvula midline. Mucous membranes moist. 19:46 Neck: ROM/movement: limited range of motion, that is mild, when rotating to the left. 19:46 Chest/axilla: Exam negative for acute changes. 19:46 Cardiovascular: Rate: normal, Rhythm: regular. 19:46 Respiratory: the patient does not display signs of respiratory distress, Respirations: normal, Breath sounds: are clear throughout. 19:46 Abdomen/GI: Bowel sounds: normal, Palpation: abdomen is soft and non-tender, in all quadrants. 19:46 Back: Exam negative for acute changes. 19:46 : Exam negative for acute changes. 19:46 Musculoskeletal/extremity: Exam is negative for acute changes. 19:46 Skin: Exam negative for rash. 19:46 Neuro: Orientation: is normal, Mentation: is normal, Cranial nerves: grossly normal, Cerebellar function: is grossly normal, Motor: is normal, Sensation: is normal, Gait: is steady. Vital Signs: 17:22 BP 145 / 74; Pulse 71; Resp 18; Temp 97.9(TE); Pulse Ox 98% on R/A; tw2 MDM: 19:30 Patient medically screened. pkl 20:48 Data reviewed: vital signs, nurses notes. ED course: Dr. Lynch called. Want patient pkl admitted and notify Cardiology. 21:49 ED course: Dr. Ocampo ( Manager Analysis insulation mechanic ) notified of EKG and Troponin and request pkl for consult. 11/17 19:47 Order name: COVID-19 : Document "Date of Symptom Onset" if Symptomatic. mw2 11/17 20:40 Order name: Basic Metabolic Panel; Complete Time: 21:39 pkl 11/17 20:40 Order name: CBC with Diff; Complete Time: 21:39 pkl 11/17 20:40 Order name: LFT's; Complete Time: 21:39 pkl 11/17 20:40 Order name: Magnesium; Complete Time: 21:39 pkl 11/17 20:40 Order name: NT PRO-BNP; Complete Time: 21:39 pkl 11/17 20:40 Order name: PT-INR; Complete Time: 21:39 pkl 11/17 20:40 Order name: Troponin (emerg Dept Use Only); Complete Time: 21:39 pkl 11/17 21:07 Order name: SARS-COV-2 RT PCR; Complete Time: 21:39 EDMS 11/18 02:21 Order name: Troponin I EDCO 11/18 06:37 Order name: Basic Metabolic Panel EDCO 11/18 06:41 Order name: CBC with Automated Diff EDMS 11/18 07:11 Order name: Troponin I EDMS 11/17 19:46 Order name: EKG; Complete Time: 19:46 pkl 11/17 19:46 Order name: CT C Spine; Complete Time: 20:26 pkl 11/17 20:40 Order name: XRAY Chest (1 view) pkl 11/17 20:40 Order name: Cardiac monitoring; Complete Time: 20:46 pkl 11/17 20:40 Order name: EKG - Nurse/Tech; Complete Time: 20:46 pkl 11/17 20:40 Order name: IV Saline Lock; Complete Time: 21:04 pkl 11/17 20:40 Order name: Labs collected and sent; Complete Time: 21:04 pkl 11/17 20:40 Order name: O2 Per Protocol; Complete Time: 20:46 pkl 11/17 20:40 Order name: O2 Sat Monitoring; Complete Time: 20:46 pkl Administered Medications: No medications were administered Disposition Summary: 11/17/20 21:53 Hospitalization Ordered Hospitalization Status: Observation pkl Provider: Giovanni Lynch pksri Condition: Stable pkl Problem: new pkl Symptoms: are unchanged pkl Bed/Room Type: Standard pkl Location: Telemetry/MedSurg (observation)(11/18/20 13:24) dw Room Assignment: 225(11/18/20 13:24) dw Diagnosis - Chest pain. Advanced cervical spines degenerative changes pkl Forms: - Medication Reconciliation Form pkl - SBAR form pkl Signatures: Dispatcher [employer] Bailey Ravi RN RN mw Woody, Diana, RN RN dw Lam, Pin, MD MD pkl Marisa Mcconnell RN RN tw2 Corrections: (The following items were deleted from the chart) 20: 19:47 CORONAVIRUS ordered. EDMS EDMS : 21:53 Telemetry/MedSurg (observation) pkl mw 21:53 pkl mw 11/18 13:24 11/17 22:27 [facility] ER HOLD mw dw 11/18 13:24 11/17 22:27 ERHOLD- mw dw
[2020-11-18 01:21] VITALS: BMI 32.1
[2020-11-18 06:36] LABS: Absolute Lymphocytes (CBC) 2.2 K/uL (0.7-4.9); Basophils % 1.1 % (0-1.3); Hematocrit 37.1 % (36.0-45.0); Lymphocytes % 31.9 % (15.3-44.8); MPV 6.9 fL (7.6-11.3); RBC Red Blood Cell Count 4.12 M/uL (3.86-4.86)
[2020-11-18 06:37] LABS: Potassium 3.9 mmol/L (3.5-5.1)
[2020-11-18] MEDS ORDERED: ASPIRIN EC 81 MG TAB PO ONE (07:47)
[2020-11-18] MEDS ORDERED: ASPIRIN EC 81 MG TAB PO SCH (09:00)
--- NOTE | 2020-11-18 10:52 | P.HP ---
Certification for Inpatient Patient admitted to: Inpatient With expected LOS: >2 Midnights Patient will require the following post-hospital care: None Practitioner: I am a practitioner with admitting privileges, knowledge of patient current condition, hospital course, and medical plan of care. Services: Services provided to patient in accordance with Admission requirements found in Title 42 Section 412.3 of the Code of Federal Regulations Patient History Date of Service: 11/18/20 Primary Care Provider: Syed Reason for admission: Unstable angina History of Present Illness: patient came to my office to establish care yesterday. She had a history of htn, hyperlipidemia and neck pain. she has been having pain in the neck and the left shoulder blade radiating down the left arm. This has been going on for the last 4 weeks. However it has increased in the last 2 days to an 8-10/10. She had an ekg done in the office. Showed a left bundle branch block and some st changes in the leads v3-5. There was a ekg from Dec 07 in the hospital records which did not have any LBBB. Considering her advanced age, symptoms and ekg changes, she was sent to the hospital Allergies No Known Allergies Allergy (Unverified 11/17/20 23:45) - Past Medical/Surgical History Has patient received pneumonia vaccine in the past: No - Social History Smoking Status: Never smoker Alcohol use: No CD- Drugs: No Place of Residence: Home Review of Systems 10-point ROS is otherwise unremarkable Cardiovascular: Chest Pain Gastrointestinal: Constipation Musculoskeletal: Neck Pain Physical Examination - Vital Signs Temperature: 98.0 F Blood Pressure: 152/57 Pulse: 58 Respirations: 17 Pulse Ox (%): 99 - Physical Exam General: Alert, In no apparent distress HEENT: Atraumatic, PERRLA, Mucous membr. moist/pink, EOMI, Sclerae nonicteric Neck: Supple, 2+ carotid pulse no bruit, No LAD, Without JVD or thyroid abnormality Respiratory: Clear to auscultation bilaterally, Normal air movement Cardiovascular: Regular rate/rhythm, Normal S1 S2 Gastrointestinal: Normal bowel sounds, No tenderness Musculoskeletal: No tenderness Integumentary: No rashes Neurological: Normal gait, Normal speech, Normal strength at 5/5 x4 extr, Normal tone, Normal affect Lymphatics: No axilla or inguinal lymphadenopathy - Studies Laboratory Data (last 24 hrs) 07/30/21 20:55: PT 11.1, INR 0.97 11/17/20 20:55: WBC 7.50, Hgb 13.4, Hct 39.6, Plt Count 240 11/17/20 20:55: Sodium 138, Potassium 4.3, BUN 19 H, Creatinine 0.87, Glucose 84, Magnesium 2.6 H, Total Bilirubin 0.5, AST 18, ALT 19, Alkaline Phosphatase 99 Assessment and Plan - Problems (Diagnosis) (1) Unstable angina Current Visit: Yes Status: Acute Plan: She is not having symptoms now. However she is bradycardic. EKG changes persist in the hospital ekg. Will hold the metoprolol. Will start aspirin and plavix. Have discussed the patient with Dr. Ocampo. Most likely she will need an angiogram (2) HTN (hypertension) Current Visit: Yes Status: Chronic Plan: she has only been on metoprolol er 50mg. Which I will hold off as the patient is in the 50-60 range. consider a low dose aceI in the patient Qualifiers: Hypertension type: primary hypertension Qualified Code(s): I10 - Essential (primary) hypertension (3) Hyperlipidemia Current Visit: Yes Status: Acute Plan: check lipid panel. Will restart her atorvastatin Qualifiers: Hyperlipidemia type: mixed hyperlipidemia Qualified Code(s): E78.2 - Mixed hyperlipidemia (4) Constipation Current Visit: Yes Status: Acute Plan: start stool softeners Qualifiers: Constipation type: slow transit constipation Qualified Code(s): K59.01 - Slow transit constipation (5) Cervicalgia Current Visit: Yes Status: Chronic Plan: she has some signs of disc disease on her ct. Will continue her gabapentin. Tyelnol prn. She is currently not having any problems. Will get her PT as an outpatient - Advance Directives Does patient have a Living Will: No Does patient have a Durable POA for Healthcare: No - Code Status/Comfort Care Code Status Assessed: Yes Code Status: Full Code Physician Review: Patient Assessed, Agree with Above Assessment and Plan Critical Care: No Time Spent Managing Pts Care (In Minutes): 45
[2020-11-18] MEDS ORDERED: PNEUMOCOCCAL VACCINE 0.5 ML IMVAC ONE ×2 (11:00→12:56)
[2020-11-18] MEDS ORDERED: BISACODYL E.C. 5 MG TAB PO PRN (12:25)
[2020-11-18] MEDS ORDERED: POTASSIUM CL SA 10 MEQ TAB PO ONE (14:22)
[2020-11-18] MEDS: ENOXAPARIN 40 MG/0.4 ML SQ SCH (16:08)
--- NOTE | 2020-11-18 16:19 | CON ---
Date of Consultation: 11/18/2020 Reason For Consultation: Possible unstable angina. History Of Present Illness: This is an elderly 89-year-old female with history of dyslipidemia, hype rtension, presented with pain in between her shoulder blades and radiates to the left upper extremity that comes and goes. Seen by her doctor in the primary care office and she had a left bundle branch block, which is new from 3 years ago. Saw her at bedside and she does not have any chest pain, but she claims that this pain comes and goes and the pain does not get worse with movements of her neck. At the present time, she is pain free. Past Medical History: As outlined above in HPI. Medications: Refer reconciliation sheet for detailed list. Allergies: NO KNOWN DRUG ALLERGIES. Family History: No premature coronary artery disease or cancer. Social History: Does not smoke or drink. Does not use any drugs. Review of Systems: All systems reviewed and they were negative except for mentioned in the HPI. Physical Examination: Vital Signs: Temperature is 98.0, pulse 58, breathing at 17, blood pressure is 152/57, and saturatin g 99% on room air. General: Pleasant elderly female, in no apparent distress. Head and Neck: Pupils are equal and reactive to light. Intact eye movements. No JVD. No cervical lymphadenopathy. Neck: Supple. Thyroid is not enlarged. Lungs: Clear to auscultation bilaterally. No rhonchi, wheezing, or crackles. No accessory muscle u se. Heart: Regular rate and rhythm. No extra sounds. Abdomen: Soft, nontender. Bowel sounds positive. No organomegaly. No rigidity or rebound. Extremities: No edema, clubbing, or cyanosis. Intact pulses. Skin: No rashes. Neurologic: Alert, oriented x3. No acute focal deficits appreciated. Investigations: Troponins two sets are negative. Creatinine 0.67. White blood cell count is 6.8. Hemoglobin 12.7. Assessment And Recommendations: Left arm pain and neck pain. This could be cardiac in origin, howev er, not very specific, but EKG is changed to left bundle branch block. Cardiac enzymes are negative and she is pain free. I recommend an evaluation with a Lexiscan nuclear stress test and echocardiogr am and further plan according to the results. Please continue aspirin and monitor blood pressure, an d further recommendations based on the stress test results. SR/MODL Voice ID: [id number] Report ID: [id number]
[2020-11-18] MEDS: GABAPENTIN 300 MG CAP PO SCH (20:04)
[2020-11-19 06:16] LABS: Hematocrit 39.5 % (36.0-45.0); Lymphocytes % 34.6 % (15.3-44.8); MPV 6.9 fL (7.6-11.3); RBC Red Blood Cell Count 4.34 M/uL (3.86-4.86)
[2020-11-19 06:17] LABS: Absolute Lymphocytes (CBC) 2.4 K/uL (0.7-4.9)
[2020-11-19 06:43] LABS: Albumin 3.7 g/dL (3.4-5.0); Bilirubin Total 0.9 mg/dL (0.2-1.0); Potassium 4.2 mmol/L (3.5-5.1); Protein, Total 7.3 g/dL (6.4-8.2); Thyroid Stimulating Hormone 2.33 uIU/mL (0.360-3.740)
[2020-11-19] MEDS: lisinopriL 5 MG TAB PO SCH (07:58)
[2020-11-19] MEDS: GABAPENTIN 300 MG CAP PO SCH ×2 (07:59→21:14)
[2020-11-19] MEDS: CLOPIDOGREL 75 MG TABLET PO SCH (07:59)
[2020-11-19] MEDS: ASPIRIN 81 MG CHEWABLE TABLET PO SCH (07:59)
--- NOTE | 2020-11-19 10:38 | P.PN ---
Subjective Date of Service: 11/19/20 Primary Care Provider: Syed Chief Complaint: Unstable angina Subjective: No new changes Review of Systems Cardiovascular: Chest Pain (occasional chest pain or left shoulder blade) Physical Examination - Vital Signs Temperature: 96.9 F Blood Pressure: 134/61 Pulse: 61 Respirations: 16 Pulse Ox (%): 95 - Physical Exam General: Alert, In no apparent distress HEENT: Atraumatic, PERRLA, EOMI Neck: Supple, JVD not distended Respiratory: Clear to auscultation bilaterally, Normal air movement Cardiovascular: Regular rate/rhythm, Normal S1 S2 Gastrointestinal: Normal bowel sounds, No tenderness Musculoskeletal: No tenderness Integumentary: No rashes Neurological: Normal speech, Normal tone, Normal affect Lymphatics: No axilla or inguinal lymphadenopathy Assessment & Plan - Problems (Diagnosis) (1) Unstable angina Current Visit: Yes Status: Acute Plan: She is not having symptoms now. However she is bradycardic. EKG changes persist in the hospital ekg. Will hold the metoprolol. Will start aspirin and plavix. Have discussed the patient with Dr. Ocampo. Most likely she will need an angiogram 11/19 Plans for echo and lexiscan (2) HTN (hypertension) Current Visit: Yes Status: Chronic Plan: she has only been on metoprolol er 50mg. Which I will hold off as the patient is in the 50-60 range. consider a low dose aceI in the patient Qualifiers: Hypertension type: primary hypertension Qualified Code(s): I10 - Essential (primary) hypertension (3) Hyperlipidemia Current Visit: Yes Status: Acute Plan: check lipid panel. Will restart her atorvastatin Qualifiers: Hyperlipidemia type: mixed hyperlipidemia Qualified Code(s): E78.2 - Mixed hyperlipidemia (4) Constipation Current Visit: Yes Status: Acute Plan: start stool softeners Qualifiers: Constipation type: slow transit constipation Qualified Code(s): K59.01 - Slow transit constipation (5) Cervicalgia Current Visit: Yes Status: Chronic Plan: she has some signs of disc disease on her ct. Will continue her gabapentin. Tyelnol prn. She is currently not having any problems. Will get her PT as an outpatient Discharge Plan: Home Plan to discharge in: 24 Hours - Code Status/Comfort Care Code Status Assessed: No Physician Review: Patient Assessed, Agree with Above Assessment and Plan Critical Care: No Time Spent Managing Pts Care (In Minutes): 20
[2020-11-19] MEDS: ENOXAPARIN 40 MG/0.4 ML SQ SCH (16:08)
[2020-11-20 05:52] VITALS: O2SAT 98
[2020-11-20 05:53] LABS: Absolute Lymphocytes (CBC) 2.2 K/uL (0.7-4.9); Hematocrit 38.2 % (36.0-45.0); Lymphocytes % 30.6 % (15.3-44.8); MPV 6.8 fL (7.6-11.3); RBC Red Blood Cell Count 4.21 M/uL (3.86-4.86)
[2020-11-20 06:23] LABS: Albumin 3.3 g/dL (3.4-5.0); Bilirubin Total 0.6 mg/dL (0.2-1.0); Potassium 4.1 mmol/L (3.5-5.1); Protein, Total 6.6 g/dL (6.4-8.2)
[2020-11-20] MEDS ORDERED: REGADENOSON 0.4 MG/5 ML SYR IV ONE (08:35)
[2020-11-20] MEDS: CLOPIDOGREL 75 MG TABLET PO SCH (09:00)
[2020-11-20] MEDS: ASPIRIN 81 MG CHEWABLE TABLET PO SCH (09:00)
[2020-11-20] MEDS: lisinopriL 5 MG TAB PO SCH (09:33)
[2020-11-20] MEDS: GABAPENTIN 300 MG CAP PO SCH (09:33)
--- NOTE | 2020-11-20 14:09 | ECHO ---
HEIGHT: 5 ft 1 in WEIGHT: 169 lb 15.975 oz DATE OF STUDY: 11/20/[address]: Giovanni Lynch MD 2-DIMENSIONAL: YES M.MODE: YES DOPPLER: YES COLOR FLOW: YES TDS: NO PORTABLE: NO DEFINITY: NO BUBBLE STUDY: NO DIAGNOSIS: CHEST PAIN CARDIAC HISTORY: CATHERIZATION: NO SURGERY: NO PROSTHETIC VALVE: NO PACEMAKER: NO MEASUREMENTS (cm) DIASTOLIC (NORMALS) SYSTOLIC (NORMALS) IVSd 1.3 (0.6-1.2) LA Diam 2.8 (1.9-4.0) LVEF 6% LVIDd 4.0 (3.5-5.7) LVIDs 2.6 (2.0-3.5) %FS 34% LVPWd 1.3 (0.6-1.2) Ao Diam 2.9 (2.0-3.7) 2 DIMENSIONAL ASSESSMENT: RIGHT ATRIUM: NORMAL LEFT ATRIUM: NORMAL RIGHT VENTRICLE: NORMAL LEFT VENTRICLE: NORMAL TRICUSPID VALVE: NORMAL MITRAL VALVE: NORMAL PULMONIC VALVE: NORMAL AORTIC VALVE: NORMAL PERICARDIAL EFFUSION: NONE AORTIC ROOT: NORMAL LEFT VENTRICULAR WALL MOTION: NORMAL DOPPLER/COLOR FLOW: NORMAL COMMENTS: NORMAL 2D ECHOCARDIOGRAM WITH DOPPLER. NO WALL MOTION ABNORMALITY. NO EFFUSION. TECHNOLOGIST: Rambo OLIVAREZ
--- NOTE | 2020-11-20 14:18 | RAD REPORT ---
EXAM DESCRIPTION: NM - Rest Stress Cardiac Imaging - 11/20/2020 2:09 pm CLINICAL HISTORY: CP Chest pain. COMPARISON: No comparisons TECHNIQUE: The patient was administered approximately 10mCi of Tc 99m Sestamibi prior to resting SPE CT imaging of the heart. The patient was then administered approximately 30 mCi of Tc 99m Sestamibi f ollowing exercise or pharmacologic stress. Multiplanar SPECT images were reviewed. FINDINGS: No stress induced ischemic defect is seen to suggest stress induced ischemia. No fixed def ect is seen to suggest hibernating myocardium or scarred myocardium. The end diastolic volume is 53 ml, the end systolic volume is 15 ml, and the ejection fraction is 73 %. IMPRESSION: No stress induced ischemia.
--- NOTE | 2020-11-20 15:16 | P.DS ---
Admission Date: 11/19/20 Discharge Date: 11/20/20 Primary Care Provider: Syed Disposition: ROUTINE DISCHARGE Discharge Condition: GOOD Reason for Admission: Unstable angina - Problems (1) Unstable angina Current Visit: Yes Status: Acute (2) HTN (hypertension) Current Visit: Yes Status: Chronic Qualifiers: Hypertension type: primary hypertension Qualified Code(s): I10 - Essential (primary) hypertension (3) Hyperlipidemia Current Visit: Yes Status: Acute Qualifiers: Hyperlipidemia type: mixed hyperlipidemia Qualified Code(s): E78.2 - Mixed hyperlipidemia (4) Constipation Current Visit: Yes Status: Acute Qualifiers: Constipation type: slow transit constipation Qualified Code(s): K59.01 - Slow transit constipation (5) Cervicalgia Current Visit: Yes Status: Chronic Brief History of Present Illness: patient came to my office to establish care yesterday. She had a history of htn, hyperlipidemia and neck pain. she has been having pain in the neck and the left shoulder blade radiating down the left arm. This has been going on for the last 4 weeks. However it has increased in the last 2 days to an 8-10/10. She had an ekg done in the office. Showed a left bundle branch block and some st changes in the leads v3-5. There was a ekg from Dec 07 in the hospital records which did not have any LBBB. Considering her advanced age, symptoms and ekg changes, she was sent to the hospital Hospital Course: Patient was admitted no troponin elevations. Negative lexiscan. She had normal wall motion on her echo I believe her 6% ef on her echo is a typo. Will double check with Dr. Rawls. If he is ok with discharge will send her home. has a follow up appointment on Friday in my office Vital Signs/Physical Exam: Temp Pulse Resp BP Pulse Ox 96.5 F L 74 16 129/66 98 11/20/20 12:00 11/20/20 12:00 11/20/20 12:00 11/20/20 12:00 11/20/20 12:00 Laboratory Data at Discharge: WBC 7.10 K/uL (4.3-10.9) 11/20/20 05:34 Hgb 13.0 g/dL (12.0-15.0) 11/20/20 05:34 Hct 38.2 % (36.0-45.0) 11/20/20 05:34 Plt Count 218 K/uL (152-406) 11/20/20 05:34 PT 11.1 SECONDS (9.5-12.5) 11/17/20 20:55 INR 0.97 11/17/20 20:55 Sodium 139 mmol/L (136-145) 11/20/20 05:34 Potassium 4.1 mmol/L (3.5-5.1) 11/20/20 05:34 BUN 13 mg/dL (7-18) 11/20/20 05:34 Creatinine 0.73 mg/dL (0.55-1.3) 11/20/20 05:34 Glucose 83 mg/dL (74-106) 11/20/20 05:34 Phosphorus 3.0 mg/dL (2.5-4.9) 11/19/20 05:55 Magnesium 2.6 mg/dL (1.8-2.4) H 11/17/20 20:55 Total Bilirubin 0.6 mg/dL (0.2-1.0) 11/20/20 05:34 AST 14 U/L (15-37) L 11/20/20 05:34 ALT 16 U/L (12-78) 11/20/20 05:34 Alkaline Phosphatase 82 U/L (45-117) 11/20/20 05:34 Troponin I < 0.02 ng/mL (0.0-0.045) 11/18/20 06:15 Triglycerides 97 mg/dL (<150) 11/19/20 05:55 Cholesterol 175 mg/dL (<200) 11/19/20 05:55 HDL Cholesterol 51 mg/dL (40-60) 11/19/20 05:55 Cholesterol/HDL Ratio 3.43 11/19/20 05:55 Home Medications: Atorvastatin Calcium [Lipitor*] 1 tab PO DAILY 11/18/20 Gabapentin 1 tab PO BID 11/18/20 lisinopriL [Prinivil*] 2.5 mg PO DAILY 30 Days #30 tab 11/20/20 New Medications: lisinopriL [Prinivil*] 2.5 mg PO DAILY 30 Days #30 tab Followup: Giovanni Lynch MD [Primary Care Provider] - 11/22/20 1:00 pm
[2020-11-20] MEDS: ENOXAPARIN 40 MG/0.4 ML SQ SCH (15:21)
[2020-11-20 16:45] VITALS: BP 135/68; TEMP 97
--- NOTE | 2020-11-23 11:21 | PN ---
Date of Progress Note: 11/20/2020 Ms. Odell is 89, was admitted by Dr. Lynch for possible congestive heart failure, was seen by Dr. Daria adrian in consultation. Echocardiogram, however, and Lexiscan were perfectly normal without any evide nce of congestive heart failure, wall motion abnormalities, or ischemia. We are comfortable with her going home. We will be happy to see her in the office in the near future. ARIEL/LARS Voice ID: [id number] Report ID: [id number]
== END 2020-11-20 17:30 | disposition home or self-care (01) | DRG 311 ==
LOC: ER 17:00 → ERHOLD 22:08 → 2ND 11-18 14:18 → OBSVTOIN 11-19 23:47
PROVIDERS: ADMIT Internal Medicine; ATTEND Internal Medicine
DX: I20.0 Unstable angina (principal); I10 Essential (primary) hypertension; E78.2 Mixed hyperlipidemia; M54.2 Cervicalgia; M79.602 Pain in left arm; K59.01 Slow transit constipation; R00.1 Bradycardia, unspecified; Z90.49 Acquired absence of other specified parts of digestive tract; Z79.899 Other long term (current) drug therapy; Z20.822 Contact with and (suspected) exposure to COVID-19; Z23 Encounter for immunization
CPT/HCPCS: 36415; 71045; 72125; 78452; 80048; 80053; 80061; 80076; 83735; 83880; 84100; 84443; 84484; 85025; 85610; 90471; 90732; 93017; 93306; 99285; A9500; G0378; J1650; J2785; U0003